=== PATIENT | male | born 1980 | race Caucasian/White ===

== ENCOUNTER 2017-04-21 21:04 | Emergency (ER) | payer BC ==
[~2017-04-21] VITALS: Ht 185.4 cm; Wt 106.8 kg
[~2017-04-21 21:04] MED LIST: PRLSR20 PO
[2017-04-21 21:10] VITALS: Ht 185.4 cm; Wt 106.8 kg
[2017-04-21] MEDS ORDERED: ACET-1256 PO (21:22)
[2017-04-21] MEDS ORDERED: NAPR1TAB9 PO (21:22)
[2017-04-21] MEDS ORDERED: AMOX875T3 PO (21:22)
[2017-04-21] MEDS ORDERED: MoRPHine SULFATE 4 MG/ML 1 ML CARP\\VIAL IV STA (21:29)
[2017-04-21] MEDS ORDERED: SODIUM CHLORIDE 0.9% 1000ML 1,000 ML IV STA (21:29)
[2017-04-21] MEDS ORDERED: DIPHTHERIA/TETANUS/PERTUSSIS 0.5 ML SYR/VIAL IM. ONE (21:45)
[2017-04-21] MEDS ORDERED: ONDANSETRON INJ 2 MG/ML 2 ML VIAL IV STA (21:54)
[2017-04-21] MEDS ORDERED: ONDANSETRON INJ 2 MG/ML 2 ML VIAL ONE (21:55)
[2017-04-21 21:58] VITALS: O2SAT 97
[2017-04-21 21:58] LABS: BASO % 0.4 %; BASO ABS # 0.02 K/uL (0-0.2); COMPLETE YES; EOS % 1.6 %; HEMATOCRIT 44.4 % (42-52); IG% 0.4 %; LYMPH % 33.5 %; LYMPH ABS # 1.89 K/uL (1.2-3.4); MEAN CELL VOLUME 91.9 fL (80-100); MEAN CORPUSCULAR HEMOGLOBIN 32.7 pg (25-34); MEAN CORPUSCULAR HGB CONC 35.6 g/dl (32-36); MEAN PLATELET VOLUME 8.6 fL (7.4-10.4); MONO % 7.1 %; PLATELET COUNT 196 K/uL (130-400); RED BLOOD COUNT 4.83 M/uL (4.7-6.1); WHITE BLOOD COUNT 5.65 K/uL (4.8-10.8)
--- NOTE | 2017-04-21 21:59 | EMERGENCY ROOM VISIT NOTE ---
History First contact with patient: 21:16 Chief Complaint: FACIAL PAIN/INJURY Stated Complaint: HEAD AND NECK PAIN, JAW PAIN History of Present Illness The patient is a 37 year old male who presents to the Emergency Room with complaints of bilateral jaw pain that has been getting progressively worse over the past week. It got much worse tonight, which is what prompted him to come to the emergency department. Patient has had associated subjective fevers and chills with this, as well as headache and fullness in his ears. He has been taking Tylenol and Aleve for the pain, with some improvement, however he states these are no longer working for his pain. Patient states that he was seen at an urgent care for his symptoms 5 days ago, they diagnosed him with a sinus infection and placed him on amoxicillin which he has been taking for the past 5 days and has not had any improvement. Patient does note that about a month ago he was hit in the left jaw by a large tree branch that caused some abrasions and a puncture wound on his chin, he did not have this evaluated at the time. He also notes that his tetanus is not up-to-date and he would like this to be updated today. Patient states he did not have any initial jaw pain or issues after the injury until about one week ago. He denies any vision changes, neck pain, sore throat, difficulty swallowing, chest pain, shortness of breath, abdominal pain, nausea or vomiting, changes in bowel or bladder habits, rash. Review of Systems A complete 10 point review of systems was reviewed with the patient with pertinent positives and negatives as per history of present illness. All else were negative. Past Medical/Surgical History No significant past medical or surgical history. Social History Smoking Status: Current Some Day Smoker Smokeless Tobacco Use: Yes Alcohol Use: occasionally Drug Use: none Marital Status: Housing Status: lives with family Current/Historical Medications Scheduled Acetaminophen (Tylenol), 1,000 MG PO PRN UD Amoxicillin (Amoxil), 1 TAB PO BID Naproxen (Aleve), 1-2 MG PO PRN UD Triamcinolone Acetonide (Nasal (Nasacort Allergy 24Hr), 2 SPRAYS SASHA DAILY Allergies No known allergies. Physical Exam Vital Signs Date Time Temp Pulse Resp B/P (MAP) Pulse Ox O2 Delivery O2 Flow Rate FiO2 04/21/17 23:31 36.5 77 17 138/92 98 04/21/17 23:10 77 17 138/92 98 Room Air 04/21/17 21:58 97 Room Air 04/21/17 21:10 36.3 75 18 148/98 99 Room Air Physical Exam CONSTITUTIONAL: No acute distress. Well appearing and well nourished. Alert and oriented X 4 with normal affect. HEENT: Mild left-sided facial swelling noted, tenderness to palpation of the bilateral jaw and anterior neck bilaterally. Mild cervical adenopathy that is tender to palpation. PERRL, EOMI. TMs with slight injection suggestive of fluid , no erythema or signs of infection. Pharynx normal. No trismus or jaw claudication. No cellulitis noted. NECK: Supple, full active range of motion without discomfort. RESPIRATORY: Clear to auscultation bilaterally with no wheezing, crackles, rhonchi or stridor. Equal expansion bilaterally. CARDIOVASCULAR: Regular rate and rhythm with no murmurs, rubs or gallops. Normal peripheral perfusion. No edema. GASTROINTESTINAL: Soft, nontender, nondistended. Bowel sounds present in all quadrants. MUSCULOSKELETAL: Full range of motion of all joints without discomfort. INTEGUMENTARY: No rash or other significant dermatologic conditions noted. NEUROLOGIC: Cranial nerves II-XII grossly intact. No focal neurologic deficits noted. Normal strength, normal sensation, normal gait, normal coordination, normal speech. Medical Decision & Procedures ER Provider Diagnostic Interpretation: CT SCAN OF THE FACIAL BONES WITH IV CONTRAST CLINICAL HISTORY: Bilateral jaw pain. COMPARISON STUDY: No priors. TECHNIQUE: High-resolution CT scan of the facial bones is performed following the IV administration of 92 cc of Optiray 320. Images are reviewed in the axial, sagittal, and coronal planes. IV contrast was administered without complication. A dose lowering technique was utilized adhering to the principles of ALARA. CT DOSE: 725.52 mGy.cm FINDINGS: The skeletal structures are well mineralized. There is no evidence of facial bone fracture. The bony orbits are intact and the orbital contents are within normal limits. The zygomatic arches, nasal bones, and pterygoid plates are preserved. The maxilla and mandible are intact. The temporomandibular joints are maintained. There are no layering blood products within the paranasal sinuses. Trace mucosal thickening is seen in the maxillary antra. The remaining paranasal sinuses and mastoid air cells are clear. The visualized calvarium and upper cervical spine are maintained. Partially imaged brain parenchyma is within normal limits. The right mandibular molars and one of the left mandibular molars are absent. Dental caries is identified within the most posterior left mandibular molar. No periapical lucency or cortical breakthrough is identified. Tiny dental caries are also seen within the left maxillary premolars. There is no evidence of periodontal abscess. IMPRESSION: 1. There is no evidence of facial bone fracture. 2. Dental caries are identified as above. There is no periapical lucency, cortical breakthrough, or evidence of periodontal abscess. 3. The temporomandibular joints appear maintained. Laboratory Results 04/21/17 21:45 Red Blood Count 4.83, Mean Corpuscular Volume 91.9, Mean Corpuscular Hemoglobin 32.7, Mean Corpuscular Hemoglobin Concent 35.6, Mean Platelet Volume 8.6, Neutrophils (%) (Auto) 57.0, Lymphocytes (%) (Auto) 33.5, Monocytes (%) (Auto) 7.1, Eosinophils (%) (Auto) 1.6, Basophils (%) (Auto) 0.4, Neutrophils # (Auto) 3.23, Lymphocytes # (Auto) 1.89, Monocytes # (Auto) 0.40, Eosinophils # (Auto) 0.09, Basophils # (Auto) 0.02 04/21/17 21:45 Test 04/21/17 21:45 04/21/17 21:52 White Blood Count 5.65 K/uL (4.8-10.8) Red Blood Count 4.83 M/uL (4.7-6.1) Hemoglobin 15.8 g/dL (14.0-18.0) Hematocrit 44.4 % (42-52) Mean Corpuscular Volume 91.9 fL (80-100) Mean Corpuscular Hemoglobin 32.7 pg (25-34) Mean Corpuscular Hemoglobin Concent 35.6 g/dl (32-36) Platelet Count 196 K/uL (130-400) Mean Platelet Volume 8.6 fL (7.4-10.4) Neutrophils (%) (Auto) 57.0 % Lymphocytes (%) (Auto) 33.5 % Monocytes (%) (Auto) 7.1 % Eosinophils (%) (Auto) 1.6 % Basophils (%) (Auto) 0.4 % Neutrophils # (Auto) 3.23 K/uL (1.4-6.5) Lymphocytes # (Auto) 1.89 K/uL (1.2-3.4) Monocytes # (Auto) 0.40 K/uL (0.11-0.59) Eosinophils # (Auto) 0.09 K/uL (0-0.5) Basophils # (Auto) 0.02 K/uL (0-0.2) RDW Standard Deviation 42.2 fL (36.4-46.3) RDW Coefficient of Variation 12.5 % (11.5-14.5) Immature Granulocyte % (Auto) 0.4 % Immature Granulocyte # (Auto) 0.02 K/uL (0.00-0.02) Erythrocyte Sedimentation Rate 2 mm/hr (0-14) Est Creatinine Clear Calc Drug Dose 120.2 ml/min Estimated GFR () 100.3 Estimated GFR (Non- 86.5 BUN/Creatinine Ratio 12.6 (10-20) Calcium Level 8.8 mg/dl (8.5-10.1) Chemistry Specimen Hemolysis Bedside Hemoglobin 16.0 g/dl (14.0-18.0) Bedside Hematocrit 47 % (42-52) Bedside Sodium 141 mEq/L (135-144) Bedside Potassium 4.1 mEq/L (3.3-5.0) Bedside Chloride 103 mEq/L (101-112) Bedside Total CO2 26 mEq/l (24-31) Anion Gap 16.0 mmol/L (16-25) Bedside Blood Urea Nitrogen 15 mg/dl (7-18) Bedside Creatinine 1.0 mg/dl (0.6-1.3) Bedside Glucose (other) 100 mg/dl (70-99) Bedside Ionized Calcium (Regina) 1.20 mmol/l (1.12-1.32) Medications Administered Medications (Trade) Dose Ordered Sig/Keisha Route Start Time Stop Time Status Last Admin Dose Admin Sodium Chloride 1,000 ml @ 999 mls/hr Q1H1M STAT IV 04/21/17 21:29 04/21/17 22:29 DC 04/21/17 21:29 999 MLS/HR Morphine Sulfate (MoRPHine SULFATE INJ) 4 mg NOW STAT IV 04/21/17 21:29 04/21/17 21:34 DC 04/21/17 21:48 4 MG Diphtheria/ Pertussis/Tetanus Vacc (Adacel Inj) 0.5 ml ONCE ONCE IM. 04/21/17 21:45 04/21/17 21:46 DC 04/21/17 21:48 0.5 ML Ondansetron HCl (Zofran Inj) 4 mg STK-MED ONCE .ROUTE 04/21/17 21:55 04/21/17 21:56 DC 04/21/17 21:55 4 MG Ibuprofen (Motrin Tab) 800 mg NOW STAT PO 04/21/17 23:20 04/21/17 23:21 DC 04/21/17 23:26 800 MG Medical Decision CC: Patient presenting with complaint of jaw pain with fevers/chills Interpretation of Labs: No leukocytosis, no anemia, no significant electrolyte abnormalities, normal renal function. Differential Diagnosis: Includes, but not limited to jaw fracture, abscess, facial cellulitis, osteomyelitis, viral URI, sinusitis, eustachian tube dysfunction, TMJ syndrome, among others. Medication Reconciliation: I attest that I have personally reviewed the patient' s current medication list. Vital signs review: I reviewed the patient's vital signs and interpret them as follows: T: Afebrile; BP: Hypertensive; HR: Within normal limits; RR: Within normal limits; Pulse Ox: Within normal limits on room air. Blood pressure screening: The patient was found to have an elevated blood pressure and was referred to their primary doctor for recheck and further treatment. Summary: Patient was evaluated at bedside, history of physical exam performed. Patient is alert and in no acute distress, but does appear to be in some pain. Resting comfortably in the stretcher. Patient complains of bilateral jaw pain, on palpation he is tender bilaterally, left greater than right. There is mild left-sided facial/jaw swelling noted. There is mild anterior cervical adenopathy palpated. No obvious facial cellulitis or fluctuance, normal strength and range of motion in the jaw, no visible or palpable deformities. No gingivitis or periapical abscesses appreciated on intraoral exam. There is slight bulging behind both TMs, clear with no erythema, not suppurative. Orders were placed at bedside for labs, IV fluids for hydration, IV morphine for pain, CT maxillofacial bones with IV contrast to evaluate for jaw fracture, infection, osteomyelitis. Patient's tetanus was also updated today. Patient discussed with Dr. Baker, who agrees with my assessment and plan. Labs reviewed as above, no acute abnormalities. CT Imaging is unremarkable, specifically negative for any fractures or signs of infection. Patient reassessed multiple times throughout ED stay, he states he is much improved after pain medication. Given the patient's symptoms of bilateral pain and slight fluid behind the TMs, along with a normal workup, I suspect the patient may be having seasonal allergies causing eustachian tube dysfunction. I discussed management of patient's symptoms, Rx for Nasacort provided, and patient was encouraged to follow closely with his PCP. Patient was also given return precautions should his symptoms worsen, he verbalized understanding. Patient was discharged home in stable condition and ambulatory. Medication Reconcilliation Current Medication List: was personally reviewed by me (no daily medications) Blood Pressure Screening Patient's blood pressure: Elevated blood pressure Impression Primary Impression: Jaw pain Additional Impression: Eustachian tube dysfunction Departure Information Dispostion Home / Self-Care Condition GOOD Prescriptions Triamcinolone Acetonide (Nasal (Nasacort Allergy 24Hr) 55 Mcg/Act Spr 2 SPRAYS SASHA DAILY for 14 Days, #1 BTL Prov: Corrine Milian CRNP 04/21/17 Referrals Danielle Jacinto (PCP) Patient Instructions Allergies Nasal Related Probs, ED Otitis Media Serous Adult, My [facility] Additional Instructions Use the Nasacort 2 sprays to each nostril daily for the next 2 weeks to help manage her symptoms. You may also use Afrin nasal spray 2 sprays to each nostril twice a day for the next 2-3 days. Do not use for more than 3 days, as this may cause rebound congestion. Apply warm compresses to the tender area along your jaw for comfort and to help reduce pain. Gentle massage may also help improve your pain. Ibuprofen 800 mg every 8 hours and/or Tylenol 1000 mg every 8 hours as needed for pain. You may alternate between these two medications every 4 hours for optimal pain management. You should complete the course of amoxicillin as prescribed. Follow-up with your PCP in the next 4-5 days if her symptoms have not improved or are getting worse. Please return to the emergency department for any significantly worsening symptoms, including severe worsening pain, severe headache, dizziness or passing out, persistent vomiting, persistent fever/chills, or any other concerns. Work Instructions Return To Work: 1 day Problem Qualifiers Additional Impression: Eustachian tube dysfunction Laterality: bilateral Qualified Codes: H69.83 - Other specified disorders of eustachian tube, bilateral
[2017-04-21] MEDS ORDERED: OPTIRAY 320 IV PRN (22:00)
[2017-04-21 22:05] LABS: ISTAT IONIZED CALCIUM 1.2 mmol/l (1.12-1.32)
[2017-04-21 22:23] LABS: BUN/CREATININE RATIO 12.6 (10-20); CALCIUM 8.8 mg/dl (8.5-10.1); CREATININE 1.1 mg/dl (0.60-1.40); POTASSIUM 4.1 mmol/L (3.5-5.1)
--- NOTE | 2017-04-21 22:54 | DIAGNOSTIC IMAGING REPORT ---
CT SCAN OF THE FACIAL BONES WITH IV CONTRAST CLINICAL HISTORY: Bilateral jaw pain. COMPARISON STUDY: No priors. TECHNIQUE: High-resolution CT scan of the facial bones is performed following the IV administration of 92 cc of Optiray 320. Images are reviewed in the axial, sagittal, and coronal planes. IV contrast was administered without complication. A dose lowering technique was utilized adhering to the principles of ALARA. CT DOSE: 725.52 mGy.cm FINDINGS: The skeletal structures are well mineralized. There is no evidence of facial bone fracture. The bony orbits are intact and the orbital contents are within normal limits. The zygomatic arches, nasal bones, and pterygoid plates are preserved. The maxilla and mandible are intact. The temporomandibular joints are maintained. There are no layering blood products within the paranasal sinuses. Trace mucosal thickening is seen in the maxillary antra. The remaining paranasal sinuses and mastoid air cells are clear. The visualized calvarium and upper cervical spine are maintained. Partially imaged brain parenchyma is within normal limits. The right mandibular molars and one of the left mandibular molars are absent. Dental caries is identified within the most posterior left mandibular molar. No periapical lucency or cortical breakthrough is identified. Tiny dental caries are also seen within the left maxillary premolars. There is no evidence of periodontal abscess. IMPRESSION: 1. There is no evidence of facial bone fracture. 2. Dental caries are identified as above. There is no periapical lucency, cortical breakthrough, or evidence of periodontal abscess. 3. The temporomandibular joints appear maintained. Electronically signed by: Michelet Victor M.D. 04/21/2017 10:53 PM Dictated Date/Time: 04/21/2017 10:46 PM
[2017-04-21] MEDS ORDERED: TRIA1SPR4 NAE (23:10)
[2017-04-21] MEDS ORDERED: IBUPROFEN 800 MG TAB PO STA (23:20)
[2017-04-21 23:31] VITALS: BP 138/92; PULSE 77; TEMP 36.5; O2SAT 98
== END 2017-04-21 23:33 | disposition home or self-care (01) ==
LOC: C.EDB 21:05 → C.EDA 23:33
DX: R68.84 Jaw pain (principal); H69.83 Other specified disorders of Eustachian tube, bilateral; F17.200 Nicotine dependence, unspecified, uncomplicated